=== PATIENT | female | born 1975 ===

== ENCOUNTER 2022-08-17 01:18 | Emergency (ER) | payer OTHER ==
[~2022-08-17] VITALS: Ht 162.6 cm; Wt 99.3 kg
[2022-08-17] MEDS ORDERED: KETO10TA2 PO (02:59)
== END 2022-08-17 03:30 | disposition home or self-care (01) ==
LOC: ER 01:18
DX: S62.642A Nondisplaced fracture of proximal phalanx of right middle finger, initial encounter for closed fracture (principal); X58.XXXA Exposure to other specified factors, initial encounter; Y93.89 Activity, other specified; Y92.89 Other specified places as the place of occurrence of the external cause